=== PATIENT | female | born 1990 | race Caucasian/White ===

== ENCOUNTER 2016-09-28 14:03 | Emergency (ER) | payer BC ==
[2016-09-28 14:19] VITALS: TEMP 98.6; O2SAT 97
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
[2016-09-28 15:06] VITALS: BP 122/73; PULSE 66; RESP 16
== END 2016-09-28 15:08 | disposition home or self-care (01) ==
DX: S52.502A Unspecified fracture of the lower end of left radius, initial encounter for closed fracture (principal); S52.615A Nondisplaced fracture of left ulna styloid process, initial encounter for closed fracture; Z87.891 Personal history of nicotine dependence; V18.2XXA Unspecified pedal cyclist injured in noncollision transport accident in nontraffic accident, initial encounter